=== PATIENT | female | born 1970 | race Hispanic/Latino ===

== ENCOUNTER 2017-05-05 12:57 | Inpatient (IN) | payer MEDICAID ==
[~2017-05-05] VITALS: Ht 149.9 cm; Wt 79.8 kg
[2017-05-05 13:25] LABS: BASOPHILS % (AUTO) 1.5 % (0.0-5.0); EOSINOPHILS % (AUTO) 0.6 % (0.0-8.0); HEMATOCRIT 40.6 % (36-48); LYMPHOCYTES % (AUTO) 18.9 % (21.0-51.0); MEAN CORPUSCULAR HEMOGLOBIN 26.2 pg (27.0-33.0); MEAN CORPUSCULAR VOLUME 77.2 fL (79-99); MONOCYTES % (AUTO) 5.3 % (3.0-13.0); NEUTROPHILS % (AUTO) 73.7 % (40.0-77.0); PLATELET COUNT (AUTO) 274 K/uL (130-400); RED BLOOD CELL COUNT(AUTO) 5.26 MIL/uL (4.00-5.50); WHITE BLOOD COUNT (AUTO) 8.3 K/uL (4.8-10.8)
[2017-05-05] MEDS ORDERED: MORPHINE SULFATE 2 MG/ML 1ML SYG ONE (13:25)
[2017-05-05 14:18] LABS: ALBUMIN 3.4 g/dL (3.5-5.0); BILIRUBIN,TOTAL 1.1 mg/dL (0.2-1.0); CREATININE 1.3 mg/dL (0.5-1.5); POTASSIUM 4.4 mmol/L (3.5-5.1); TOTAL PROTEIN, SERUM 7.4 g/dL (6.0-8.3)
[2017-05-05 15:28] LABS: BILIRUBIN,URINE Negative (NEGATIVE); COLOR,URINE Dark Yellow (YELLOW); GLUCOSE, URINE (UA) >=1000 mg/dL (NEGATIVE); KETONES,URINE 40 mg/dL (NEGATIVE); LEUKOCYTE ESTERASE ,URINE Negative (NEGATIVE); NITRATE,URINE Negative (NEGATIVE); OCCULT BLOOD,URINE Small (NEGATIVE); PROTEIN,URINE >=1000 (NEGATIVE)
[2017-05-05 15:33] LABS: APPEARANCE,URINE CLOUDY (CLEAR)
[2017-05-05 15:34] LABS: HCG,QUAL RESULT NEGATIVE (NEGATIVE)
[2017-05-05] MEDS ORDERED: SODIUM CHLORIDE 0.9% 1000ML 1,000 ML IV ONE (15:39)
[2017-05-05] MEDS ORDERED: ONDANSETRON HCL 4 MG/2 ML VIAL ONE (15:39)
[2017-05-05] MEDS ORDERED: INSULIN HUMULIN R 100 UNIT/ML 3ML ONE (15:40)
[2017-05-05] MEDS ORDERED: KETOROLAC TROMETHAMINE 15MG/ML ONE (15:40)
[2017-05-05 16:32] LABS: BACTERIA,URINE Many /HPF (None Seen)
[2017-05-05 16:33] LABS: SQUAMOUS EPITHELIAL CELL,UR Moderate /LPF (0-2)
[2017-05-05 20:46] LABS: CREATINE KINASE MB 6.9 ng/mL (0.5-3.6)
[2017-05-05 20:57] VITALS: BP 118/76
[2017-05-05] MEDS ORDERED: LIDOCAINE HCL-MPF 1% 2ML VIAL IJ PRN (21:00)
[2017-05-05] MEDS ORDERED: POTASSIUM CHLORIDE 10% ELIXIR 20 MEQ/15 ML UDCUP PO PRN (21:00)
[2017-05-05] MEDS ORDERED: DEXTROSE 50%-WATER 50 ML DISP.SYRIN IV PRN (21:00)
[2017-05-05] MEDS: SODIUM CHLORIDE 0.9% 1000ML 1,000 ML IV SCH (21:00)
[2017-05-05] MEDS ORDERED: POTASSIUM CHLORIDE 20MEQ/100ML 100 ML IV PRN (21:00)
[2017-05-05] MEDS ORDERED: GLUCAGON 1MG KIT 1 MG ML IM PRN (21:00)
[2017-05-05] MEDS ORDERED: POTASSIUM CHLORIDE 20 MEQ ERTAB PO PRN (21:00)
[2017-05-05 21:19] LABS: CREATINE KINASE MB 6.5 ng/mL (0.5-3.6); MYOGLOBIN 83 ng/mL (10-92); TROPONIN I < 0.04 ng/mL (0.00-0.06)
[2017-05-05 21:24] LABS: CREATINE KINASE, TOTAL 493 U/L (21-232)
[2017-05-06] VITALS (7 sets, daily range): BP systolic 93–146; BP diastolic 61–84
[2017-05-06] MEDS ORDERED: HYDRALAZINE HCL 20 MG/ML VIAL IV PRN (01:00)
[2017-05-06] MEDS ORDERED: CEFTRIAXONE 1GM/D5W 50ML 50 ML IV SCH ×2 (01:00→21:00)
[2017-05-06] MEDS ORDERED: CEFTRIAXONE SODIUM 1 GM IVP SCH (02:00)
[2017-05-06 03:31] LABS: HEMOGLOBIN A1C 13.9 % (4.0-6.0)
[2017-05-06 03:45] LABS: CREATINE KINASE MB 6.8 ng/mL (0.5-3.6); MYOGLOBIN 62 ng/mL (10-92); TROPONIN I < 0.04 ng/mL (0.00-0.06)
[2017-05-06 04:12] LABS: CREATINE KINASE, TOTAL 407 U/L (21-232)
[2017-05-06] MEDS: KETOROLAC TROMETHAMINE 15MG/ML IV PRN (04:32)
[2017-05-06] MEDS: SODIUM CHLORIDE 0.9% 1000ML 1,000 ML IV SCH (05:36)
[2017-05-06] MEDS: ASPIRIN 325 MG TABLET PO SCH (08:52)
[2017-05-06 09:40] LABS: CHOLESTEROL 425 mg/dL (<200); HDL CHOLESTEROL 39 mg/dL (35-85); TRIGLYCERIDES 199 mg/dL (30-200)
[2017-05-06] MEDS ORDERED: LISINOPRIL 10 MG TABLET PO SCH (10:45)
[2017-05-06 10:56] LABS: LDL DIRECT 304 mg/dL (0-99)
[2017-05-06] MEDS: INSULIN HUMULIN R 100 UNIT/ML 3ML SQ SCH ×3 (11:55→21:09)
[2017-05-06] MEDS: LEVOTHYROXINE 75 MCG TABLET PO SCH (11:55)
[2017-05-06] MEDS ORDERED: SIMV20TA6 PO (13:02)
[2017-05-06] MEDS ORDERED: LEVO100T4 PO (13:02)
[2017-05-06] MEDS ORDERED: ASPI-1197 PO (13:02)
[2017-05-06] MEDS ORDERED: HUM10VIA SQ ×2 (13:02)
[2017-05-06] MEDS ORDERED: EZET10 PO (13:02)
[2017-05-06] MEDS ORDERED: LISI10TA7 PO (13:02)
[2017-05-06] MEDS ORDERED: ATORVASTATIN CALCIUM 20 MG TABLET ONE (19:22)
[2017-05-06] MEDS ORDERED: CEFTRIAXONE SODIUM 1 GM ONE (19:23)
[2017-05-06] MEDS: CEFTRIAXONE SODIUM 1 GM IVP SCH (20:16)
[2017-05-06] MEDS: ATORVASTATIN CALCIUM 20 MG TABLET PO SCH (20:17)
[2017-05-06] MEDS: INSULIN GLARGINE 100 UNITS/ML 10 ML VIAL SQ SCH (20:19)
[2017-05-07 03:47] VITALS: BP 94/66
[2017-05-07] MEDS: INSULIN HUMULIN R 100 UNIT/ML 3ML SQ SCH ×4 (05:59→20:26)
[2017-05-07] MEDS: LEVOTHYROXINE 75 MCG TABLET PO SCH (06:15)
[2017-05-07] MEDS: INSULIN GLARGINE 100 UNITS/ML 10 ML VIAL SQ SCH ×2 (06:17→20:26)
[2017-05-07 07:41] VITALS: BP 121/82
[2017-05-07] MEDS ORDERED: LISINOPRIL 5 MG TABLET PO SCH (09:00)
[2017-05-07] MEDS ORDERED: CIPR-245 PO (09:18)
[2017-05-07] MEDS ORDERED: METOCLOPRAMIDE 10 MG/2 ML VIAL IVP SCH (09:30)
[2017-05-07] MEDS: LISINOPRIL 5 MG TABLET PO SCH (10:11)
[2017-05-07] MEDS: ASPIRIN 325 MG TABLET PO SCH (10:12)
[2017-05-07] MEDS: KETOROLAC TROMETHAMINE 15MG/ML IV PRN ×3 (10:15→23:24)
[2017-05-07 11:16] VITALS: BP 92/59
[2017-05-07] MEDS ORDERED: METOCLOPRAMIDE 10 MG/2 ML VIAL ONE (15:00)
[2017-05-07] MEDS: ONDANSETRON HCL 4 MG/2 ML VIAL IVP PRN (16:20)
[2017-05-07 16:21] VITALS: BP 99/67
[2017-05-07 19:24] VITALS: BP 113/84
[2017-05-07] MEDS: CEFTRIAXONE SODIUM 1 GM IVP SCH (20:05)
[2017-05-07] MEDS: ATORVASTATIN CALCIUM 20 MG TABLET PO SCH (20:06)
[2017-05-07 23:28] VITALS: BP 121/79
[2017-05-08 03:38] VITALS: BP 96/57
[2017-05-08] MEDS: LEVOTHYROXINE 75 MCG TABLET PO SCH (05:37)
[2017-05-08] MEDS: INSULIN HUMULIN R 100 UNIT/ML 3ML SQ SCH ×4 (06:18→21:30)
[2017-05-08] MEDS: INSULIN GLARGINE 100 UNITS/ML 10 ML VIAL SQ SCH ×2 (06:19→21:31)
[2017-05-08 07:38] VITALS: BP 82/58
[2017-05-08] MEDS: ONDANSETRON HCL 4 MG/2 ML VIAL IVP PRN (08:54)
[2017-05-08] MEDS: LISINOPRIL 5 MG TABLET PO SCH (08:54)
[2017-05-08] MEDS: ASPIRIN 325 MG TABLET PO SCH (08:54)
[2017-05-08] MEDS ORDERED: METOCLOPRAMIDE 10 MG/2 ML VIAL IVP SCH (10:00)
[2017-05-08] MEDS ORDERED: SODIUM CHLORIDE 0.9% 500ML 500 ML IV STA (10:00)
[2017-05-08 11:18] VITALS: BP 95/63
[2017-05-08 16:45] VITALS: BP 121/78
[2017-05-08] MEDS ORDERED: METOCLOPRAMIDE 10 MG/2 ML VIAL ONE (17:22)
[2017-05-08 19:17] VITALS: BP 109/68
[2017-05-08] MEDS: CEFTRIAXONE SODIUM 1 GM IVP SCH (20:43)
[2017-05-08] MEDS: ATORVASTATIN CALCIUM 20 MG TABLET PO SCH (20:43)
[2017-05-08] MEDS ORDERED: TRAZODONE HCL 50 MG TAB PO SCH (21:00)
[2017-05-08] MEDS ORDERED: INSULIN GLARGINE 100 UNITS/ML 10 ML VIAL SQ ONE (21:28)
[2017-05-08 23:49] VITALS: BP 120/64
[2017-05-09 03:48] VITALS: BP 82/56
[2017-05-09 04:39] LABS: CREATININE 1.2 mg/dL (0.5-1.5); POTASSIUM 3.6 mmol/L (3.5-5.1)
[2017-05-09] MEDS: LEVOTHYROXINE 75 MCG TABLET PO SCH (05:34)
[2017-05-09] MEDS: INSULIN HUMULIN R 100 UNIT/ML 3ML SQ SCH ×2 (06:37→11:30)
[2017-05-09] MEDS: INSULIN GLARGINE 100 UNITS/ML 10 ML VIAL SQ SCH (06:41)
[2017-05-09 07:00] VITALS: BP 140/90
[2017-05-09] MEDS: ASPIRIN 325 MG TABLET PO SCH (08:11)
[2017-05-09] MEDS ORDERED: FLUOXETINE HCL 10 MG CAPSULE PO SCH (09:00)
[2017-05-09] MEDS ORDERED: FLUO10CA21 PO (09:14)
[2017-05-09] MEDS ORDERED: MAGNESIUM CITRATE 296 ML SOLUTION PO SCH (10:00)
[2017-05-09 11:00] VITALS: BP 117/77
== END 2017-05-09 14:39 | disposition home or self-care (01) | DRG 48 ==
LOC: EDH 12:57 → OBSVTOIN 12:58 → EDHIP 12:58 → 2DH 20:33
PROVIDERS: ADMIT Internal Medicine; ATTEND Internal Medicine
DX: E11.43 Type 2 diabetes mellitus with diabetic autonomic (poly)neuropathy (principal); I31.3 Pericardial effusion (noninflammatory); E11.65 Type 2 diabetes mellitus with hyperglycemia; K31.84 Gastroparesis; E11.40 Type 2 diabetes mellitus with diabetic neuropathy, unspecified; E66.9 Obesity, unspecified; E78.2 Mixed hyperlipidemia; E86.0 Dehydration; E89.0 Postprocedural hypothyroidism; I10 Essential (primary) hypertension; K59.09 Other constipation; N39.0 Urinary tract infection, site not specified; F32.1 Major depressive disorder, single episode, moderate; F60.7 Dependent personality disorder; Z85.850 Personal history of malignant neoplasm of thyroid; Z91.14 Patient's other noncompliance with medication regimen; Z91.19 Patient's noncompliance with other medical treatment and regimen; Z68.35 Body mass index [BMI] 35.0-35.9, adult
CPT/HCPCS: 36415; 71046; 74176; 76700; 80048; 80053; 80061; 81001; 81025; 82150; 82550; 82553; 82948; 83036; 83690; 83874; 83880; 84439; 84443; 84484; 85025; 85651; 86038; 86160; 86431; 93005; 93306; A4218; J0696; J1815; J1885; J2405; J2765; J7030; J7040

== ENCOUNTER 2017-05-10 08:02 | Emergency (ER) | payer MEDICAID ==
[~2017-05-10 08:02] MED LIST: ASPI-1197 PO; CIPR-245 PO; EZET10 PO; FLUO10CA21 PO; HUM10VIA SQ; LEVO100T4 PO; LISI10TA7 PO; SIMV20TA6 PO
[2017-05-10 08:25] LABS: BASOPHILS % (AUTO) 2.4 % (0.0-5.0); EOSINOPHILS % (AUTO) 2.6 % (0.0-8.0); HEMATOCRIT 35.6 % (36-48); LYMPHOCYTES % (AUTO) 28.3 % (21.0-51.0); MEAN CORPUSCULAR HEMOGLOBIN 26.1 pg (27.0-33.0); MEAN CORPUSCULAR HGB CONC 33.5 g/dL (32.0-36.0); MEAN CORPUSCULAR VOLUME 78.1 fL (79-99); MONOCYTES % (AUTO) 6.4 % (3.0-13.0); NEUTROPHILS % (AUTO) 60.3 % (40.0-77.0); PLATELET COUNT (AUTO) 210 K/uL (130-400); RED BLOOD CELL COUNT(AUTO) 4.56 MIL/uL (4.00-5.50); RED CELL DISTRIBUTION WIDTH 19.6 % (11.0-15.5); WHITE BLOOD COUNT (AUTO) 5.8 K/uL (4.8-10.8)
[2017-05-10] MEDS ORDERED: ASPIRIN 325 MG TABLET ONE (08:28)
[2017-05-10] MEDS ORDERED: METOCLOPRAMIDE 5 MG TABLET ONE (08:28)
[2017-05-10] MEDS ORDERED: FAMOTIDINE 20MG TAB 20 MG TAB ONE (08:29)
[2017-05-10 08:30] LABS: CREATININE 0.9 mg/dL (0.5-1.5)
[2017-05-10] MEDS ORDERED: PROCHLORPERAZINE EDISYLATE 10 MG/2 ML VIAL ONE (08:31)
[2017-05-10 08:45] LABS: BILIRUBIN,TOTAL 0.8 mg/dL (0.2-1.0); CREATINE KINASE MB 10.1 ng/mL (0.5-3.6); TOTAL PROTEIN, SERUM 6.9 g/dL (6.0-8.3)
[2017-05-10 08:47] LABS: INR 0.98 (0.85-1.15); PARTIAL THROMBOPLASTIN TIME 27.4 SEC (26.3-35.5); PROTHROMBIN TIME 10.3 SEC (9.6-11.6)
[2017-05-10 09:08] LABS: B-TYPE NATRIURETIC PEPTIDE 16 pg/mL (0-100)
[2017-05-10 09:09] LABS: HIGH SENSITIVITY CRP 0.97 mg/L (0.0-3.0); THYROID STIMULATING HORMONE 54.93 uIU/mL (0.36-3.74)
[2017-05-10] MEDS ORDERED: SODIUM CHLORIDE 0.9% 1000ML 1,000 ML IV ONE (09:32)
== END 2017-05-10 10:11 | disposition home or self-care (01) ==
LOC: EDH 08:02
DX: E03.9 Hypothyroidism, unspecified (principal); K59.00 Constipation, unspecified; I31.3 Pericardial effusion (noninflammatory); E11.65 Type 2 diabetes mellitus with hyperglycemia; E78.5 Hyperlipidemia, unspecified; I10 Essential (primary) hypertension; Z85.850 Personal history of malignant neoplasm of thyroid; Z79.4 Long term (current) use of insulin
CPT/HCPCS: 36415; 71045; 80053; 82550; 82553; 83690; 83880; 84443; 84484; 85025; 85378; 85610; 85730; 86141; 93005; 96361; 96374; 99285; J0780; J7030